=== PATIENT | female | born 1935 ===

== ENCOUNTER 2017-08-07 10:13 | Emergency (ER) | payer SELFPAY ==
[2017-08-07 10:22] LABS: Basophils % (Auto) 0.6 % (0.0-1.8); Eosinophils % (Auto) 0.6 % (0.0-4.3); Hematocrit 38.1 % (30.3-42.9); Hemoglobin 12.7 gm/dl (10.1-14.3); Mean Corpuscular HGB Conc 33 % (30-34); Mean Corpuscular Hemoglobin 31 pg (28-32); Mean Corpuscular Volume 92 fl (79-97); Platelet Count 152 K/mm3 (140-440); Red Blood Count 4.17 M/mm3 (3.65-5.03)
[2017-08-07 10:35] LABS: INR 1.98 (0.87-1.13); Partial Thromboplastin Time 32.8 Sec. (24.2-36.6)
[2017-08-07 10:36] LABS: Calcium 9.5 mg/dL (8.4-10.2); Chloride 105.9 mmol/L (98-107)
--- NOTE | 2017-08-07 10:36 | Emergency Department Report ---
ED Neuro Deficit HPI - General Stated Complaint: POSS STROKE Time Seen by Provider: 08/07/17 10:30 Source: family, EMS Mode of arrival: Stretcher Limitations: Altered Mental Status - History of Present Illness Initial Comments: Patient is a 82 years old female brought to the ER by EMS as a "stroke. Patient was last time seen normal at 8:30 this morning. Family reports that she went to the bathroom around 8:30 and she was completely normal and she went back to bed and attempted to wake up around 10:15 patient is completely aphasic and unable to walk on the right side. Patient does have history of atrial fibrillation for irregular heartbeat she is on Coumadin for that. When patient arrived to the ER patient is still aphasic with paralysis on the right upper and lower extremity. -: This morning Location: speech Presenting Symptoms: Present: Weak/Paralyzed One Side, Facial Droop/Numbness History of same: No Place: home Severity: severe Quality: weak Context: sudden onset - Related Data Allergies/Adverse Reactions: Allergies Allergy/AdvReac Type Severity Reaction Status Date / Time No Known Allergies Allergy Unverified 08/07/17 10:15 ED Review of Systems ROS: Stated complaint: POSS STROKE Other details as noted in HPI Comment: Unobtainable due to pts medical conditions ED Neuro Physical Exam - General Limitations: Altered Mental Status General appearance: alert, in no apparent distress Suspected Stroke: Yes - Head Head exam: Present: atraumatic, normocephalic, normal inspection - Eye Eye exam: Present: normal appearance, PERRL - ENT ENT exam: Present: normal exam, normal orophraynx, mucous membranes moist - Neck Neck exam: Present: normal inspection, full ROM. Absent: tenderness, meningismus - Respiratory Respiratory exam: Present: normal lung sounds bilaterally. Absent: respiratory distress, wheezes, rales, rhonchi, accessory muscle use, decreased breath sounds - Cardiovascular Cardiovascular Exam: Present: irregular rhythm - GI/Abdominal GI/Abdominal exam: Present: soft, normal bowel sounds. Absent: tenderness, guarding, rebound, rigid, mass, bruit, pulsatile mass - Extremities Exam Extremities exam: Present: normal inspection, full ROM, normal capillary refill - Back Exam Back exam: Present: normal inspection. Absent: CVA tenderness (R), CVA tenderness (L), muscle spasm, paraspinal tenderness - Neurological Exam Neurological exam: Present: alert - NIHSS Assessment Interval: Baseline 1a. Level of Consciousness: alert 1b. LOC Questions: answers no questions correctly 1c. LOC Commands: performs no tasks correctly 2. Best Gaze: normal 3. Visual: no visual loss 4. Facial Palsy: partial paralysis 5b. Motor Arm Right: no gravity effort 5a. Motor Arm Left: no drift 6a. Motor Leg Left: some gravity effort 6b. Motor Leg Right: no gravity effort 7. Limb Ataxia: absent 8. Sensory: mild/moderate sensory loss 9. Best Language: severe aphasia 10. Dysarthria: severe dysarthria 11. Extinction/Inattention: no abnormality Total Score: 19 Stroke Severity: Moderate to Severe Stroke - Skin Skin exam: Present: warm, intact, normal color ED Course Vital Signs 08/07/17 08/07/17 08/07/17 10:32 11:00 11:30 Temperature Pulse Rate 74 64 66 Respiratory 18 16 22 Rate Blood Pressure 141/62 141/62 O2 Sat by Pulse 99 100 Oximetry 08/07/17 08/07/17 08/07/17 12:00 12:23 12:30 Temperature 98.4 F Pulse Rate 63 63 Respiratory 23 22 Rate Blood Pressure 144/48 160/65 O2 Sat by Pulse 99 97 Oximetry - Reevaluation(s) Reevaluation #1: 08/07/17 10:48 Dr. Siu from tele-neurology is examining the patient now Reevaluation #2: 08/07/17 10:[address] Estes he examined the patient and she indicated that patient is not a TPA candidate because of the finding on the CT and patient will need to have a CTA neck and CTA brain. This tests is being ordered now. Reevaluation #3: 08/07/17 12:40 Received a call from the radiologist regarding CTA Brain/CTA neck which she showed left MCA thrombus. A call to [place] [facility] is initiated. - Lab Data Result diagrams: 08/07/17 10:17 08/07/17 10:17 Lab Results 08/07/17 08/07/17 08/07/17 Range/Units 10:17 10:17 10:17 WBC 7.0 (4.5-11.0) K/mm3 RBC 4.17 (3.65-5.03) M/mm3 Hgb 12.7 (10.1-14.3) gm/dl Hct 38.1 (30.3-42.9) % MCV 92 (79-97) fl MCH 31 (28-32) pg MCHC 33 (30-34) % RDW 14.0 (13.2-15.2) % Plt Count 152 (140-440) K/mm3 Lymph % (Auto) 9.9 L (13.4-35.0) % Stewart % (Auto) 4.2 (0.0-7.3) % Eos % (Auto) 0.6 (0.0-4.3) % Baso % (Auto) 0.6 (0.0-1.8) % Lymph # 0.7 L (1.2-5.4) K/mm3 Stewart # 0.3 (0.0-0.8) K/mm3 Eos # 0.0 (0.0-0.4) K/mm3 Baso # 0.0 (0.0-0.1) K/mm3 Seg Neutrophils % 84.7 H (40.0-70.0) % Seg Neutrophils # 6.0 (1.8-7.7) K/mm3 PT 23.5 H (12.2-14.9) Sec. INR 1.98 H (0.87-1.13) APTT 32.8 (24.2-36.6) Sec. Thrombin Time (15.1-19.6) Sec. Sodium 139 (137-145) mmol/L Potassium 3.0 L (3.6-5.0) mmol/L Chloride 105.9 (98-107) mmol/L Carbon Dioxide 18 L (22-30) mmol/L Anion Gap 18 mmol/L BUN 22 H (7-17) mg/dL Creatinine 1.0 (0.7-1.2) mg/dL Estimated GFR 53 ml/min BUN/Creatinine Ratio 22 % Glucose 150 H (65-100) mg/dL POC Glucose (70-105) Calcium 9.5 (8.4-10.2) mg/dL Troponin T 0.039 H (0.00-0.029) ng/mL Triglycerides 118 (2-149) mg/dL Cholesterol 173 (50-199) mg/dL LDL Cholesterol Direct 107 (50-130) mg/dL HDL Cholesterol 43 (40-59) mg/dL Cholesterol/HDL Ratio 4.02 % 11/16/17 11/16/17 Range/Units 10:17 10:33 WBC (4.5-11.0) K/mm3 RBC (3.65-5.03) M/mm3 Hgb (10.1-14.3) gm/dl Hct (30.3-42.9) % MCV (79-97) fl MCH (28-32) pg MCHC (30-34) % RDW (13.2-15.2) % Plt Count (140-440) K/mm3 Lymph % (Auto) (13.4-35.0) % Stewart % (Auto) (0.0-7.3) % Eos % (Auto) (0.0-4.3) % Baso % (Auto) (0.0-1.8) % Lymph # (1.2-5.4) K/mm3 Stewart # (0.0-0.8) K/mm3 Eos # (0.0-0.4) K/mm3 Baso # (0.0-0.1) K/mm3 Seg Neutrophils % (40.0-70.0) % Seg Neutrophils # (1.8-7.7) K/mm3 PT (12.2-14.9) Sec. INR (0.87-1.13) APTT (24.2-36.6) Sec. Thrombin Time 16.9 (15.1-19.6) Sec. Sodium (137-145) mmol/L Potassium (3.6-5.0) mmol/L Chloride (98-107) mmol/L Carbon Dioxide (22-30) mmol/L Anion Gap mmol/L BUN (7-17) mg/dL Creatinine (0.7-1.2) mg/dL Estimated GFR ml/min BUN/Creatinine Ratio % Glucose (65-100) mg/dL POC Glucose 135 H (70-105) Calcium (8.4-10.2) mg/dL Troponin T (0.00-0.029) ng/mL Triglycerides (2-149) mg/dL Cholesterol (50-199) mg/dL LDL Cholesterol Direct (50-130) mg/dL HDL Cholesterol (40-59) mg/dL Cholesterol/HDL Ratio % - EKG Data -: EKG Interpreted by Vt EKG shows normal: sinus rhythm Rate: normal Interpretation: no acute changes - Radiology Data Radiology results: report reviewed CT brain stroke protocol not to bleeding. CTA brain, CTA neck showed left MCA thrombus. - Medical Decision Making Discussed with Dr. Gallegos from [place] neurologist who accepted the patient to be transferred to [place] for possible thrombectomy to the left MCA Critical Care Time: Yes Critical care time in (mins) excluding proc time.: 90 Critical care attestation.: If time is entered above; I have spent that time in minutes in the direct care of this critically ill patient, excluding procedure time. ED Disposition Clinical Impression: Acute ischemic stroke Disposition: DC/TX-70 ANOTHER TYPE HLTHCARE Is pt being admited?: No Condition: Stable Referrals: PRIMARY CARE, [Primary Care Provider] - 3-5 Days
--- NOTE | 2017-08-07 10:48 | Cat Scan Report ---
CT HEAD WITHOUT CONTRAST INDICATION: Neuro deficits < 6 hours or symptoms present upon awakening. 98N. COMPARISON: None similar at this institution. FINDINGS: Noncontrast head CT demonstrates symmetric, age-appropriate, mild to moderately enlarged ventricles. Moderate periventricular and white matter hypodense small vessel ischemic disease. Subtle 4 mm hyperdense appearance to the left MCA, axial image 19 on series 2 about its turn in the sylvian fissure nonspecific for artifact versus a thrombus, noted on only one image. Approximately 4 mm left basal ganglia lacunar infarct also noted on the same image. No definite acute hemorrhage, mass effect or midline shift. No abnormal extra axial fluid collections. Normal posterior fossa with preserved basilar cisterns. Normal imaged eye globes. Left maxillary sinus mucosal thickening. Clear remainder imaged paranasal sinuses and mastoid air cells. Extensive atherosclerotic ICA and tortuous probable right vertebral artery calcifications. Intact calvarium. Normal scalp. CONCLUSION: 1. Subtle left MCA hyperdense appearance about the sylvian fissure nonspecific for being artifactual versus acute pathologic. Please also correlate clinically. 2. Age appropriate atrophy, microvascular changes and left maxillary sinusitis. If focal neurologic deficits or strong clinical suspicion for an acute infarction exist, additional assessment as with MRI may be considered, as appropriate. I phoned above results to Dr. Poon in the ER, 10:30 AM, 08/07/2017. Thank you for the opportunity to participate in this patient's care.
--- NOTE | 2017-08-07 12:45 | Cat Scan Report ---
CTA HEAD CTA NECK INDICATION: Stroke. COMPARISON: Head CT from 10:18 AM earlier today. FINDINGS: CTA head and neck performed utilizing IV contrast. Axial, sagittal, coronal and MIP reconstructions obtained. CTA HEAD: As on axial series 2, images [id number], approximately 8 mm left MCA M2 segment nonfilling laterally along the sylvian fissure on axial image 378 noted, though reconstitutes distally thereafter as on axial image 382. This may correspond to the hyperdense thrombus possible on prior CT. Remainder [place] appears patent without vascular malformation. Atherosclerotic ICA calcifications. Patent vertebral artery, predominantly felt continuation of a patent, tortuous right vertebral artery. Minimal contribution from few reconstituted branches on the left noted as on axial image 18, series 2, though a distinct opacified left vertebral artery not visualized. CTA NECK: Intense imaged pulmonary arterial enhancement with poor opacification of the aortic arch. Atherosclerotic calcifications though noted with grossly patent major arising branches. Normal opacified left vertebral artery arising off the left subclavian artery though not seen. Grossly patent common carotid arteries bilaterally with few atherosclerotic calcifications. Bilateral carotid bulb atherosclerotic calcifications without significant ICA stenosis. Medial course/deviation of the proximal and mid ICAs bilaterally though noted, left more than right with retropharyngeal course seen greatest on axial image 238, series 2 before continuing up to the skull base. Mild, approximately 50% stenosis at origin of bilateral ECAs possible. Diffusely prominent/heterogeneous thyroid with numerous small scattered calcifications and hypodense nodules/lesions, the largest on the right posteriorly approximately 1.8 cm, axial image 158, series 2. Retrosternal extension also noted, left more than right as on axial image 89. Few small AP window lymph nodes measure up to 0.7 cm. Bilateral pleural effusions extending to the upper lobes posteriorly, right more than left. Bilateral upper lobe congestive haziness/infiltrates as well. Patent airway though with mild tracheal secretions/debris as on axial image 73. Mild left frontal and left ethmoid sinus minimal thickening. Grossly clear remainder imaged paranasal sinuses and mastoid air cells. Demineralized bones with multilevel cervical spine degenerative changes, including disc narrowing, vacuum phenomenon and spurring. Cervical facet arthropathy as well, greatest at C4-C5 on the right. CONCLUSION: 1. Approximately 8mm nonfilling along the left MCA segment laterally in the sylvian fissure, corresponding to possible thrombus on prior noncontrast head CT, as described. Please correlate. 2. Nonvisualized left vertebral artery, possibly hypoplastic or chronic thrombosed with right vertebral artery predominantly continuing as a patent basilar artery. 3. Various other findings, including bilateral pleural effusions, bilateral upper lobe infiltrates, enlarged heterogeneous thyroid, retropharyngeal deviation of bilateral ICAs, sinusitis and multilevel cervical spine degenerative changes amongst others, as detailed above. I phoned the above results to Dr. Poon in the ER, 12:10 PM, 08/07/2017. Thank you for the opportunity to participate in this patient's care.
[2017-08-07 13:18] VITALS: BP 152/60
== END 2017-08-07 13:26 | disposition other institution (70) ==
LOC: ED 10:13
DX: I63.9 Cerebral infarction, unspecified (principal)
CPT/HCPCS: 36415; 70450; 70496; 70498; 80048; 80061; 82962; 84484; 85025; 85610; 85670; 85730; 93005; 93010; 99291; 99292; Q9967